=== PATIENT | male | born 1975 | race Native Hawaiian/Other Pacific Islander ===

== ENCOUNTER 2020-10-12 11:32 | Emergency (ER) | payer OTHER ==
--- NOTE | 2020-10-12 16:54 | Emergency Department Report ---
ED General Adult HPI - General Chief complaint: High BP Stated complaint: HIGH BLOOD PRESSURE Time Seen by Provider: 10/12/20 16:50 Source: patient Mode of arrival: Ambulatory Limitations: No Limitations - History of Present Illness Initial comments: 45-year-old male patient with history of hypertension presents emergency department with complaints of elevated blood pressure. He states he went to a local clinic for a checkup and they took his blood pressure, which was high. They told him he needed to come to the emergency department for evaluation. He has previously been prescribed 2 blood pressure medications but states he does not take them. He has never made any adjustments to his diet. He is completely asymptomatic. Denies headache, vision changes, chest pain, shortness of breath, palpitations, syncope, back pain, abdominal pain, urinary changes. Denies other complaints at this time. - Related Data Previous Rx's Medication Instructions Recorded Last Taken Type amLODIPine 5 mg PO DAILY #10 tab 10/12/20 Unknown Rx Allergies Allergy/AdvReac Type Severity Reaction Status Date / Time Penicillins Allergy Unknown Verified 10/12/20 11:38 ED Review of Systems ROS: Stated complaint: HIGH BLOOD PRESSURE Other details as noted in HPI Other: GENERAL: Negative for fever, chills, weight change, anorexia, fatigue. ENT: Negative for ear pain, difficulty hearing, sore throat, nasal congestion, epistaxis. CARDIOVASCULAR: Negative for chest pain, palpitations, lower extremity swelling. PULMONARY: Negative for cough, dyspnea, wheezing, orthopnea, cyanosis. GASTROINTESTINAL: Negative for abdominal pain, nausea, vomiting, diarrhea, constipation. MUSCULOSKELETAL: Negative for joint pain, joint swelling, myalgias, back pain, neck pain. NEUROLOGICAL: Negative for headache, seizure, syncope, paresthesias, weakness. INTEGUMENTARY: Negative for erythema, rash, diaphoresis, laceration, ecchymosis. HEMATOLOGICAL: Negative for hemoptysis, hematemesis, hematochezia, hematuria. PSYCHIATRIC: Negative for hallucinations, suicidal ideation, homicidal ideation, anxiety, depression. ED Past Medical Hx - Past Medical History Previous Medical History?: No - Surgical History Past Surgical History?: No - Social History Smoking Status: Never Smoker Substance Use Type: None - Medications Home Medications: Home Medications Medication Instructions Recorded Confirmed Last Taken Type amLODIPine 5 mg PO DAILY #10 tab 10/12/20 Unknown Rx ED Physical Exam - General Limitations: No Limitations - Other Other exam information: General: Awake and alert. No acute distress. Head: Atraumatic, normocephalic. Eyes: EOMI. Pupils are equal and round. Normal sclera and conjunctiva. ENT: Oral mucosa is moist. Normal pharyngeal exam. Neck: Supple. No lymphadenopathy. Pulmonary: No respiratory distress. Clear to auscultation bilaterally. Cardiac: Regular rate and rhythm. Pulses are palpable and equal bilaterally. No lower extremity cyanosis or edema. Skin: Warm and dry. No rashes. Abdomen: Soft, non-tender, non-protuberant. No guarding, rigidity, or rebound. Bowel sounds are normal. No organomegaly or masses noted. Back: Normal alignment. No CVA tenderness. Extremities: Symmetrical. Full range of motion intact. Neurological: Alert and oriented, appropriately interactive, no focal deficits. Psych: Cooperative. Appropriate mood and affect. Speech is evenly metered. Thoughts are logically construed. ED Course Vital Signs 10/12/20 10/12/20 11:38 18:08 Temperature 98.7 F Pulse Rate 108 H 86 Respiratory 20 20 Rate Blood Pressure 195/118 Blood Pressure 196/131 [Right] O2 Sat by Pulse 98 98 Oximetry ED Medical Decision Making - Medical Decision Making Differential diagnosis including but not limited to: hypertensive emergency, renal artery stenosis, chronic hypertension Patient presents to the emergency department for evaluation of asymptomatic hypertension. He was incidentally found to have an elevated blood pressure earlier today. Mild tachycardia on arrival resolved without intervention. Physical exam is normal. He specifically denies chest pain, shortness of breath, palpitations, headache, syncope, vision changes, abdominal pain, back pain. His blood pressure remained consistently elevated during a period of observation in the emergency department. He was never symptomatic prior to arrival and did not develop symptoms of hypertensive emergency while in the emergency department. Patient has been prescribed medications for his blood pressure before, but admits that he only takes one of them. He has an empty bottle of amlodipine with him. He is planning to see a primary care provider next week. Patient will be prescribed a refill of his amlodipine for 1 week with the understanding that the emergency department cannot continue to refill antihypertensive medications. He has been encouraged to continue his other medications and implement lifestyle modifications in order to manage his blood pressure. Further diagnostic work-up on an emergent basis is not clinically indicated in the setting of asymptomatic hypertension per current ACEP guidelines. Patient expressed understanding is agreeable to plan of care. Strict return precautions provided. Repeat exam is unremarkable and benign. History, exam, diagnostic testing, and current condition do not suggest worrisome pathology to warrant further testing, continued ED treatment, admission, or surgical evaluation at this point. Given the low probability of a significant medical illness, it would be more likely to result in harm than benefit to perform further testing at this stage. Discussed findings, presumptive diagnosis, need for follow-up and specific signs/symptoms that should prompt immediate return to the emergency department. Instructions were explained in detail to the patient in addition to giving written discharge information. Patient expressed understanding and was given the opportunity to ask questions, all of which were satisfactorily answered prior to discharge home. Critical care attestation.: If time is entered above; I have spent that time in minutes in the direct care of this critically ill patient, excluding procedure time. ED Disposition Clinical Impression: Asymptomatic hypertension Disposition: DC-01 TO HOME OR SELFCARE Is pt being admited?: No Does the pt Need Aspirin: No Condition: Stable Instructions: DASH Eating Plan, Hypertension, Adult, [id number], Hypertension (ED) Additional Instructions: Continue all medications as previously prescribed. Maintain a low-sodium diet. Please see attached recommendations. Exercise daily. Follow-up with Prescriptions: amLODIPine 5 mg PO DAILY #10 tab Referrals: HAWK NAIK MD [Referring] - 3-5 Days MICHELE RIVAS MD [Referring] - 3-5 Days Time of Disposition: 18:07
[2020-10-12 18:09] VITALS: BP 196/131
== END 2020-10-12 18:13 | disposition home or self-care (01) ==
LOC: ED 11:32
DX: I10 Essential (primary) hypertension (principal); Z79.899 Other long term (current) drug therapy; Z88.0 Allergy status to penicillin
CPT/HCPCS: 99282

== ENCOUNTER 2021-04-07 12:52 | Emergency (ER) | payer OTHER ==
--- NOTE | 2021-04-07 13:57 | Emergency Department Report ---
ED General Adult HPI - General Chief complaint: High BP Stated complaint: HIGH BLOOD PRESSURE Time Seen by Provider: 04/07/21 13:22 Source: patient Mode of arrival: Ambulatory Limitations: No Limitations - History of Present Illness Initial comments: Patient presents as being referred by another healthcare provider for hypertensive urgency. Patient went to the clinic. His blood pressures been elevated. They told him that he had hypertensive urgency and told him to come here. He has no chest pain or shortness of breath. Has no back pain. Has no hematuria. There is no diplopia. He does not feel weak. There is no unilateral weakness. He also admits that he has not been on his medication for over a month. Patient states that he believes he just needs a prescription refill. He does request a cardiology referral because he states that the staff at the clinic are not really able to manage his blood pressure and get it under control. He does not eat salt. He does drink occasional caffeine. - Related Data Previous Rx's Medication Instructions Recorded Last Taken Type amLODIPine 5 mg PO DAILY #10 tab 10/12/20 Unknown Rx Butalb/Acetamin/Caff 50-325-40 1 tab PO Q6HR PRN #20 tab 04/07/21 Unknown Rx [Fioricet 50-325-40] amLODIPine 10 mg PO DAILY #30 tab 04/07/21 Unknown Rx atenoloL [Tenormin] 50 mg PO DAILY #30 tab 04/07/21 Unknown Rx cloNIDine [Catapres] 0.1 mg PO BID PRN #20 tablet 04/07/21 Unknown Rx lisinopriL [Zestril TAB] 40 mg PO QDAY #30 tablet 04/07/21 Unknown Rx Allergies Allergy/AdvReac Type Severity Reaction Status Date / Time Penicillins Allergy Unknown Verified 10/12/20 11:38 ED Review of Systems ROS: Stated complaint: HIGH BLOOD PRESSURE Other details as noted in HPI Comment: All other systems reviewed and negative Constitutional: denies: fever Eyes: denies: eye pain ENT: denies: throat pain Respiratory: denies: cough Cardiovascular: denies: chest pain Endocrine: denies: unexplained weight loss Gastrointestinal: denies: abdominal pain Genitourinary: denies: dysuria Musculoskeletal: denies: back pain Skin: denies: rash Neurological: headache ( Occasional) Hematological/Lymphatic: denies: easy bruising ED Past Medical Hx - Past Medical History Previous Medical History?: Yes Hx Hypertension: Yes - Surgical History Past Surgical History?: Yes Additional Surgical History: Nose, Kieran foot - Family History Family history: hypertension - Social History Smoking Status: Never Smoker Substance Use Type: None - Medications Home Medications: Home Medications Medication Instructions Recorded Confirmed Last Taken Type amLODIPine 5 mg PO DAILY #10 tab 10/12/20 Unknown Rx Butalb/Acetamin/Caff 50-325-40 1 tab PO Q6HR PRN #20 tab 04/07/21 Unknown Rx [Fioricet 50-325-40] amLODIPine 10 mg PO DAILY #30 tab 04/07/21 Unknown Rx atenoloL [Tenormin] 50 mg PO DAILY #30 tab 04/07/21 Unknown Rx cloNIDine [Catapres] 0.1 mg PO BID PRN #20 tablet 04/07/21 Unknown Rx lisinopriL [Zestril TAB] 40 mg PO QDAY #30 tablet 04/07/21 Unknown Rx ED Physical Exam - General Limitations: No Limitations, Other ( pulse ox was noted and normal) General appearance: alert, in no apparent distress - Head Head exam: Present: atraumatic, normocephalic, normal inspection - Eye Eye exam: Present: normal appearance, EOMI. Absent: scleral icterus - ENT ENT exam: Present: normal exam, normal external ear exam - Neck Neck exam: Present: normal inspection. Absent: meningismus - Respiratory Respiratory exam: Present: normal lung sounds bilaterally. Absent: respiratory distress - Cardiovascular Cardiovascular Exam: Present: regular rate, normal rhythm - GI/Abdominal GI/Abdominal exam: Present: soft. Absent: tenderness, pulsatile mass - Extremities Exam Extremities exam: Present: normal capillary refill. Absent: pedal edema - Back Exam Back exam: Absent: CVA tenderness (R), CVA tenderness (L) - Neurological Exam Neurological exam: Present: alert, oriented X3, normal gait. Absent: motor sensory deficit - Psychiatric Psychiatric exam: Present: normal affect, normal mood - Skin Skin exam: Present: warm, dry ED Course Vital Signs 04/07/21 13:32 Temperature 98.7 F Pulse Rate 91 H Respiratory 20 Rate Blood Pressure 182/108 O2 Sat by Pulse 96 Oximetry - Reevaluation(s) Reevaluation #1: 04/07/21 14:16 patient was discharged. ED Medical Decision Making - Medical Decision Making Patient presents with paperwork referring him for hypertensive urgency. He does not seem to have evidence of hypertensive urgency at this point. His blood pressure is not well controlled, but it is not in an emergent range that would require IV infusion of medication. He has no evidence or symptoms of endorgan damage. We have discussed outpatient management. In addition, he has not been on medication for a month. I would expect his blood pressure to be out of control as opposed to be well controlled. We have discussed ongoing management. He can follow-up with his regular physician. I did provide referral for cardiology at his request. Critical Care Time: No Critical care attestation.: If time is entered above; I have spent that time in minutes in the direct care of this critically ill patient, excluding procedure time. ED Disposition Clinical Impression: Uncontrolled hypertension Disposition: 01 HOME / SELF CARE / HOMELESS Is pt being admited?: No Does the pt Need Aspirin: No Condition: Stable Instructions: Hypertension, Adult, [id number], Preventing Hypertension, Managing Your Hypertension, Hypertension (ED) Additional Instructions: Drink plenty of water. Follow-up with cardiology as discussed and referred. Return for problems. Prescriptions: amLODIPine 10 mg PO DAILY #30 tab cloNIDine [Catapres] 0.1 mg PO BID PRN #20 tablet PRN Reason: SBP>180 Butalb/Acetamin/Caff 50-325-40 [Fioricet 50-325-40] 1 tab PO Q6HR PRN #20 tab PRN Reason: Headache atenoloL [Tenormin] 50 mg PO DAILY #30 tab lisinopriL [Zestril TAB] 40 mg PO QDAY #30 tablet Referrals: FATIMAH ARCHER MD [Staff Physician] - 3-5 Days Print Language: FRISIAN
[2021-04-07 14:35] VITALS: BP 173/114
== END 2021-04-07 15:04 | disposition home or self-care (01) ==
LOC: ED 12:52
DX: I10 Essential (primary) hypertension (principal); I16.0 Hypertensive urgency; Z88.0 Allergy status to penicillin; Z79.899 Other long term (current) drug therapy
CPT/HCPCS: 99282